=== PATIENT | male | born 1985 | race Caucasian/White ===

== ENCOUNTER 2020-02-09 14:53 | Emergency (ER) | payer OTHER ==
[~2020-02-09] VITALS: Ht 172.7 cm; Wt 73.6 kg
[2020-02-09 15:45] VITALS: BP 103/69
== END 2020-02-09 16:22 | disposition home or self-care (01) ==
LOC: EMS 14:56
DX: Z20.828 Contact with and (suspected) exposure to other viral communicable diseases (principal)
CPT/HCPCS: 99283; U0003

== ENCOUNTER 2020-02-21 08:24 | Emergency (ER) | payer OTHER ==
[~2020-02-21] VITALS: Ht 172.7 cm; Wt 77.3 kg
[2020-02-21 08:27] VITALS: BP 110/63
== END 2020-02-21 08:45 | disposition home or self-care (01) ==
LOC: EMS 08:34
DX: Z20.828 Contact with and (suspected) exposure to other viral communicable diseases (principal)
CPT/HCPCS: 99283; U0003